=== PATIENT | female | born 1945 | race African-American/Black ===

== ENCOUNTER → 2017-05-06 | Day surgery (SDC) | payer BC ==
[~2017-05-06] MED LIST: ATORVASTATIN CA10 MG PO; CALTRATE 600+D1 EAC1 PO; FARXIGA5 MG PO; GLUCOPHAGE500 MG PO; GLYBURIDE-METFO1 TA3 PO; LISINOPRIL10 MG PO; ONGLYZA5 MG PO; VITAMIN D350000 UNIT PO; ZESTRIL10 MG PO
--- NOTE | ~2017-05-06 | OR ---
Unit #: [id number] #: [id number] Patient: BELEN PELAEZ [id number] [address] [address] [id number] O MR#: [id number] NAME: BELEN PELAEZ ROOM: Date of Procedure: 05/06/2017 Admission Date: 05/06/2017 Surgeon: Ramses Ness M.D. : 1945 Attending Physician: Ramses Ness M.D. OPERATIVE REPORT PROCEDURE PERFORMED Colonoscopy with snare polypectomy. INDICATIONS FOR PROCEDURE A 71-year-old female with history of colon polyps in the past, undergoing surveillance colonoscopy. MEDICATIONS Monitored anesthesia. POSTOPERATIVE FINDINGS 1. Polyps x2, transverse colon, 5 mm, snared and sent for histopathology. 2. Polyp, 5 mm, descending colon, snared, could not be retrieved. 3. Rest of the colon exam to cecum was normal. 4. Prep was good. PLAN Colonoscopy in 5 years. Follow up on the pathology report. DESCRIPTION OF PROCEDURE The patient was explained of the procedure, risks, and benefits along with risks and benefits of anesthesia. She was brought to the endoscopy room. Propofol anesthesia was given. Rectal exam was done, which was normal. Colonoscope was lubricated, passed up the rectum, advanced under direct vision all the way to the cecum. Cecum was identified by ileocecal valve and appendiceal orifice. I then started to pull the scope out carefully looking. Several polyps were seen as described. I retroflexed in the rectum, small hemorrhoids seen. Scope was gently pulled out. She tolerated it well. Dictated by... Smith Lopez/garret TD: 05/06/2017 22:10 JOB #: [id number] CC: Katerina Leos M.D. Unit #: [id number] #: [id number] Patient: BELEN PELAEZ OPERATIVE REPORT Page 1 of 1 X Ramses Ness MD PROCEDURE OPERATIVE NOTE
== END | disposition home or self-care (01) ==
LOC: COPS 09:34
DX: Z12.11 Encounter for screening for malignant neoplasm of colon (principal); D12.3 Benign neoplasm of transverse colon; K64.9 Unspecified hemorrhoids; I10 Essential (primary) hypertension; E78.5 Hyperlipidemia, unspecified; E11.9 Type 2 diabetes mellitus without complications; E89.0 Postprocedural hypothyroidism; Z87.01 Personal history of pneumonia (recurrent); Z79.899 Other long term (current) drug therapy; Z90.710 Acquired absence of both cervix and uterus
CPT/HCPCS: 82947; 88305